=== PATIENT | female | born 1995 | race Hispanic/Latino ===

== ENCOUNTER 2025-08-16 23:12 | Emergency (ER) | payer OTHER ==
[~2025-08-16] VITALS: Ht 170.2 cm; Wt 63.5 kg
[2025-08-16 23:20] VITALS: TEMP 98.4
[2025-08-16] MEDS: SODIUM CHLORIDE 0.9% 1000ML 1,000 ML IV STA (23:56)
[2025-08-16] MEDS: DIAZEPAM INJ 5 MG/ML 2 ML IV STA (23:56)
[2025-08-17 00:03] LABS: AMPHETAMINES SCREEN,URINE NEGATIVE (NEGATIVE); CANNABINOIDS SCREEN,URINE POSITIVE (NEGATIVE); COCAINE SCREEN,URINE NEGATIVE (NEGATIVE); METHADONE SCREEN, URINE NEGATIVE (NEGATIVE); OPIATES SCREEN,URINE NEGATIVE (NEGATIVE)
[2025-08-17 00:04] LABS: PREGNANCY TEST, URINE NEGATIVE (NEGATIVE)
[2025-08-17 00:10] LABS: BASOPHILS % 0.2 % (0.0-1.0); EOSINOPHILS % 0.2 % (0.0-6.0); LYMPHOCYTES % 19.2 % (18.0-39.1); MONOCYTES % 7.9 % (4.4-11.3); NEUTROPHILS % 72.2 % (38.7-80.0); RED CELL DISTRIBUTION WIDTH 12.2 % (11.7-14.4)
[2025-08-17 00:25] LABS: EST GLOMERULAR FILTRATION RATE 93 ML/MIN (>=60)
[2025-08-17 00:34] VITALS: PULSE 108; RESP 16
[2025-08-17] MEDS: LABETALOL HCL 5 MG/ML 20ML VIAL IV STA (00:51)
[2025-08-17 00:58] LABS: LEUKOCYTE ESTERASE ,URINE NEGATIVE (NEGATIVE); PROTEIN,URINE DIPSTICK 1+ (NEGATIVE)
[2025-08-17 00:59] LABS: URINE UROBILINOGEN 0.2 mg/dL (0.2 - 1)
[2025-08-17 01:08] LABS: EPITHELIAL CELLS,URINE MODERATE /LPF; WBC,URINE (MAN) 21-50 /HPF (0-5)
[2025-08-17 01:32] VITALS: BP 173/114; PULSE 96; RESP 18; TEMP 98.3; O2SAT 99
== END 2025-08-17 01:34 | disposition home or self-care (01) ==
LOC: ER 23:17
DX: I16.0 Hypertensive urgency (principal); F30.9 Manic episode, unspecified; I10 Essential (primary) hypertension; J45.909 Unspecified asthma, uncomplicated; R94.31 Abnormal electrocardiogram [ECG] [EKG]
CPT/HCPCS: 36415; 70450; 71045; 80053; 80307; 80320; 81001; 81025; 82550; 83690; 83880; 84484; 85025; 93005; 99284; J3360; J3490; J7030